=== PATIENT | female | born 1985 | race Two or more races ===

== ENCOUNTER 2016-11-27 00:54 | Emergency (ER) | payer MEDICAID, OTHER ==
[2016-11-27 01:07] VITALS: RESP 16; TEMP 97.9; O2SAT 96
[2016-11-27] MEDS ORDERED: OXYCODONE/APAP 5/325 TAB ONE (01:58)
[2016-11-27] MEDS ORDERED: OXYCODONE/APAP 5/325 TAB PO ONE (02:00)
--- NOTE | 2016-11-27 02:12 | EDPHY ---
H & P Stated Complaint: c/o 2 weeks of pain in rear of head, also 3 days ago sob intermittent Time Seen by Provider: 11/27/16 01:42 HPI/ROS: Danish language line verify rep used HPI The patient presents with occipital headache and neck pain which have been present for the last 2 weeks and have been intermittent. The pain is achy in nature and radiates towards the right side of her head but it is severe. It is associated with bilateral tinnitus as well as nausea and vague dizziness. She had a particularly severe episode of the pain while driving 3 days ago. She had to jawbone puller her car and subsequently began to shake and felt short of breath like she was having a panic attack. She was seen at the clinic on the same day and had an EKG that was presumably normal. She was instructed to take Tylenol and Flexeril, which he is now taking without any improvement in the symptoms. Tonight, her symptoms return for about 1 hour and she comes into the emergency room. REVIEW OF SYSTEMS Constitutional: No fever, no chills. Eyes: No discharge. ENT: No sore throat. Cardiovascular: No chest pain, no palpitations. Respiratory: No cough, no shortness of breath. Gastrointestinal: No abdominal pain, no vomiting. Genitourinary: No hematuria. Musculoskeletal: No back pain. Skin: No rashes. Neurological: See HPI PMHx: Healthy Soc Hx: No alcohol, no drugs PHYSICAL General Appearance: Alert, no distress Eyes: Pupils equal and round no pallor or injection ENT, Mouth: Mucous membranes moist Head: Tenderness at her posterior occiput without any rash or skin changes Respiratory: There are no retractions, lungs are clear to auscultation Cardiovascular: Regular rate and rhythm Gastrointestinal: Abdomen is soft and non-tender, no masses, bowel sounds normal Neurological: A&O, cranial nerves 2-12 intact, 5/5 strength in upper and lower extremities which is symmetric, no pronator drift, no nystagmus, normal gait Skin: Warm and dry, no rashes Musculoskeletal: Neck is supple non tender with full range of motion Extremities: symmetrical, full range of motion Psychiatric: Patient is oriented X 3, there is no agitation Source: Patient Exam Limitations: No limitations - Medical/Surgical History Hx Asthma: No Hx Chronic Respiratory Disease: No Hx Diabetes: No Hx Cardiac Disease: No Hx Renal Disease: No Hx Cirrhosis: No Hx Alcoholism: No Hx HIV/AIDS: No Hx Splenectomy or Spleen Trauma: No Other PMH: none - Social History Smoking Status: Never smoked Constitutional: Initial Vital Signs Temperature (C) 36.6 C 11/27/16 01:02 Heart Rate 74 11/27/16 01:02 Respiratory Rate 16 11/27/16 01:02 Blood Pressure 108/73 11/27/16 01:02 O2 Sat (%) 96 11/27/16 01:02 O2 Delivery Mode Room Air Allergies/Adverse Reactions: No Known Allergies Allergy (Verified 11/27/16 01:08) Home Medications: Medication Instructions Recorded Tylenol 11/27/16 Medical Decision Making - Diagnostics Imaging: CT head noncon- no acute findings, discussed with Dr Short of radiology. Procedures: Lower cervical intramuscular injection performed. Skin was prepped with chlorhexidine, 1.5mLs of bupivicaine 0.5% were injected 2cm lateral to C6 spinous processes bilatearlly. Pt tolerated procedure well without complications. Differential Diagnosis: This is a healthy 31-year-old female who presents with an occipital headache and neck pain which has been intermittent for the last 1 week. She also says that when she is feeling the headache she feels panicky with shortness of breath which resolves. On exam, she has a normal neurologic evaluation with no nystagmus or any other cerebellar findings. She does have tenderness at the base of her neck. Differential diagnosis includes tension type headache, cervical strain, less likely cerebellar stroke or cerebellar mass given normal exam. In the emergency room, CT scan was performed which was normal. She also was given a dose of Inlet with some improvement in her symptoms. Because of ongoing headache, we discussed doing a cervical it trigger-point injection and she agrees to proceed. See procedure note for full details. She will be discharged with follow up with her clinic. I feel she likely has a tension type headache which is inducing some anxiety. - Data Points Medications Given: Discontinued Medications Acetaminophen/Hydrocodone Bitart (Inlet 5/325mg Prepack#6) 1 btl TAKEHOME EDNOW ONE Stop: 11/27/16 03:51 Last Admin: 11/27/16 03:58 Dose: 1 btl Oxycodone/Acetaminophen (Percocet 5/325) 2 tab PO EDNOW ONE Stop: 11/27/16 02:01 Last Admin: 11/27/16 02:01 Dose: 2 tab Departure - Departure Disposition: Home, Routine, Self-Care Clinical Impression: Occipital headache Condition: Good Instructions: General Headache (ED) Referrals: To Dowling MD [Primary Care Provider] - As per Instructions Print Language: Danish
[2016-11-27] MEDS ORDERED: HYDROCOD/APAP 5/325 PREPACK#6 BTL TAKEHOME ONE ×2 (03:50→03:52)
[2016-11-27 04:00] VITALS: BP 107/66; PULSE 84
--- NOTE | 2016-11-27 09:39 | CT ---
CT Head (Without Contrast) November 27, 2016 at 2:19 a.m. Indication: Headache. Technique: Standard noncontrast head CT protocol utilizing 5 mm thick collimated slices and field of view of 23 cm. Dose reduction techniques were utilized. Comparison: None. Findings: The brain is normally developed. No intracranial hemorrhage, mass lesion, swelling, or ext raaxial fluid collection. The ventricles are normal caliber and midline. The palma and white matter jane s normal attenuation. No evidence of ischemia. The bones are unremarkable. The paranasal sinuses are clear. Impression: Normal brain. No intracranial hemorrhage, mass, or swelling. The study was performed as an emergency on-call case and discussed by telephone with Dr. Katz at 2 :32 a.m. The final interpretation is concordant with the original communication.
== END 2016-11-27 03:59 | disposition home or self-care (01) ==
DX: R51 Headache (principal)